=== PATIENT | male | born 1975 | race Two or more races ===

== ENCOUNTER 2021-08-10 23:42 | Emergency (ER) | payer OTHER ==
[~2021-08-10] VITALS: Ht 165.1 cm; Wt 72.6 kg
[2021-08-10 23:50] VITALS: BP 149/88
--- NOTE | 2021-08-11 00:01 | NUR ---
COVID ANTIGEN SWAB COLLECTED AND SENT TO LAB
[2021-08-11] MEDS ORDERED: KETOROLAC TROMETHAMINE 15 MG/ML VIAL ONE (09:55)
[2021-08-11] MEDS ORDERED: IBUP-1955 PO (13:06)
== END 2021-08-11 01:20 ==
LOC: ER 23:48
DX: Z20.822 Contact with and (suspected) exposure to COVID-19 (principal)
CPT/HCPCS: 87426; 99283; C9803; J1885

== ENCOUNTER 2021-08-11 09:19 | Emergency (ER) | payer OTHER ==
[~2021-08-11] VITALS: Ht 162.6 cm; Wt 82.1 kg
--- NOTE | 2021-08-11 09:25 | NUR ---
DR RAMOS AT THE BEDSIDE
--- NOTE | 2021-08-11 09:25 | NUR ---
[id number] FOR C/O LEFT SHOULDER PAIN 09/10. THE PATIENT IS ALERT AND ORIENTED X4. NO APPARENT DEFORMITY IN THE EXTREMITY NOTED. WILL CONTINUE TO MONITOR THE PATIENT.
[2021-08-11] MEDS ORDERED: KETOROLAC TROMETHAMINE INJ 30 MG/ML VIAL IM ONE (09:30)
--- NOTE | 2021-08-11 09:45 | NUR ---
resting and asleepy wating FOR xray result
[2021-08-11 09:47] LABS: BASOPHILS # (AUTO) 0.1 K/uL (0.0-0.2); BASOPHILS % (AUTO) 0.4 % (0.0-2.0); EOSINOPHILS % (AUTO) 0.3 % (0.0-6.0); HEMATOCRIT 39 % (39-51); HEMOGLOBIN 13.1 g/dL (13.5-17.5); LYMPHOCYTES # (AUTO) 1.2 K/uL (0.8-4.8); LYMPHOCYTES % (AUTO) 6.3 % (20.0-44.0); MEAN CORPUSCULAR HGB CONC 34 g/dl (31.0-36.0); MEAN CORPUSCULAR VOLUME 87 fL (80-96); MONOCYTES % (AUTO) 10.2 % (2.0-12.0); NEUTROPHILS % (AUTO) 82.8 % (43.0-81.0); PLATELET COUNT (AUTO) 406 K/uL (150-450); RED BLOOD CELL COUNT(AUTO) 4.44 MIL/uL (4.5-6.0); WHITE BLOOD COUNT (AUTO) 19.3 K/uL (4.3-11.0)
[2021-08-11 10:41] LABS: CARBON DIOXIDE 26 mmol/L (21-32); CHLORIDE 98 mmol/L (98-107); POTASSIUM 3.6 mmol/L (3.5-5.1); SODIUM SERUM 135 mmol/L (136-145)
[2021-08-11 10:42] LABS: CALCIUM, SERUM 8.6 mg/dL (8.5-10.1); CREATININE 0.5 mg/dL (0.6-1.3); GLUCOSE 134 mg/dL (74-106); UREA NITROGEN, BLOOD 11 mg/dL (7-18)
--- NOTE | 2021-08-11 10:49 | NUR ---
ty for lab result
--- NOTE | 2021-08-11 10:54 | NUR ---
[employer] AT bed side FOR [place] BLAND
[2021-08-11] MEDS ORDERED: IBUP-1955 PO (13:06)
--- NOTE | 2021-08-11 13:25 | NUR ---
WATING FOR DISPO AND CLEARENES
--- NOTE | 2021-08-11 13:50 | NUR ---
d/c instraction given to officers and pt clear to book d/xc with RX GIVEN TO OFFICER
[2021-08-11 13:52] VITALS: BP 134/92
[2021-08-11 16:09] LABS: BAND % (MANUAL) 4 % (0.0-5.0); LYMPHOCYTES % (MANUAL) 6 % (16-48); MONOCYTES % (MANUAL) 5 % (0-11.0); NEUTROPHILS % (MANUAL) 85 (42-76)
== END 2021-08-11 13:56 ==
LOC: ER 09:30
DX: M25.512 Pain in left shoulder (principal); R00.0 Tachycardia, unspecified; Z60.2 Problems related to living alone
CPT/HCPCS: 36415; 71045; 71046; 80048; 84484 ×2; 85007; 85025; 93005; 96372; 99285; J1885